=== PATIENT | male | born 1965 | race Caucasian/White ===

== ENCOUNTER → 2017-07-03 | Outpatient (CLI) | payer OTHER ==
[~2017-07-03] MED LIST: ADVIN25/60 INH; ATOR-26 PO; ESCI10TA17 PO; HYDR-389 PO; HYDR2TAB48 PO; HYDR4TAB2 PO; LORA-741 PO; LSN40 PO; METO50TA16 PO; NIFE30TA83 PO; OMG3 PO; PRLSR20 PO; RANI150T85 PO; ROPI0.25 PO; SUCR5SUS PO; VNTHFA/IN INH
--- NOTE | 2017-07-03 16:25 | DIAGNOSTIC IMAGING REPORT ---
THORACOLUMBAR SPINE 2 VIEWS CLINICAL HISTORY: THORACIC BACK PAIN, CHECK CATHETER PLACEMENT COMPARISON STUDY: None. FINDINGS: There is a right-sided intrathecal catheter which appears to enter at the L4-5 interlaminar space. This extends cephalad with the tip terminating at the T10 level. The intrathecal portion of the catheter is not well visualized. Possible discontinuity within the catheter within the right posterior back is likely due to overlapping bowel gas. Pacemaker/defibrillator wires are noted. IMPRESSION: 1. Right-sided intrathecal catheter which terminates at the T10 level. 2. The segment of the catheter within the right posterior back soft tissues appears to have a focal defect/discontinuity. However, this could be due to the overlapping bowel gas rather than a true area of discontinuity. Electronically signed by: Davie Wen M.D. 07/03/2017 4:24 PM Dictated Date/Time: 07/03/2017 4:18 PM
== END | disposition home or self-care (01) ==
LOC: C.RADBC 16:01
PROVIDERS: ATTEND Physician Assistant Medical
DX: M54.6 Pain in thoracic spine (principal)